=== PATIENT | female | born 1985 ===

== ENCOUNTER 2021-09-07 19:30 | Emergency (ER) | payer SELFPAY ==
[2021-09-07 20:50] LABS: Bilirubin,Urine NEG (Negative); Blood,Urine NEG (Negative); Color,Urine Straw (Yellow); Mucus,Urine FEW /HPF; Protein,Urine <15 mg/dL mg/dL (Negative); Urobilinogen,Urine < 2.0 mg/dL (<2.0)
[2021-09-07 21:33] LABS: Basophils % (Auto) 0.2 % (0.0-1.8); Eosinophils % (Auto) 0.2 % (0.0-4.3); Hematocrit 38.2 % (30.3-42.9); Hemoglobin 12.7 gm/dl (10.1-14.3); Lymphocytes # (Auto) 1.3 K/mm3 (1.2-5.4); Lymphocytes % (Auto) 14.2 % (13.4-35.0); Mean Corpuscular HGB Conc 33 % (30-34); Mean Corpuscular Volume 83 fl (79-97); Monocytes # (Auto) 0.6 K/mm3 (0.0-0.8); Platelet Count 231 K/mm3 (140-440); Red Cell Distribution Width 16.6 % (13.2-15.2)
[2021-09-07] MEDS ORDERED: SODIUM CHLORIDE 0.9% 1000 ML 1,000 ML IV ONE (22:53)
[2021-09-07] MEDS ORDERED: ONDANSETRON 4 MG/2 ML INJ IV ONE (22:54)
[2021-09-07 23:20] LABS: Alanine Aminotransferase 9 units/L (7-56); Albumin 4.1 g/dL (3.9-5); Blood Urea Nitrogen 6 mg/dL (7-17); Calcium 9.3 mg/dL (8.4-10.2); Hemolysis Index 2
[2021-09-07 23:23] LABS: BUN/Creatinine Ratio 15
[2021-09-08] MEDS ORDERED: MORPHINE 2 MG/1 ML INJ IV ONE ×2 (01:27→05:52)
--- NOTE | 2021-09-08 03:09 | Ultrasound Report ---
ULTRASOUND ABDOMEN, LIMITED (RIGHT UPPER QUADRANT) INDICATION: Right lower quadrant pain. COMPARISON: None available. FINDINGS: Pancreas: Visualized portion shows no significant abnormality. Liver: Normal. Gallbladder: Normal. Bile ducts: Normal. Common Bile Duct measures 5.6 mm. Free fluid: None. Additional Findings: None. IMPRESSION: 1. No sonographic abnormality of the right upper quadrant. 2. The appendix is not definitely identified. Signer Name: Dereje Latif MD Signed: 09/08/2021 3:05 AM Workstation Name: [id number]
--- NOTE | 2021-09-08 03:14 | Ultrasound Report ---
ULTRASOUND OBSTETRIC LIMITED INDICATION / CLINICAL INFORMATION: pain. Clinical Gestational Age (GA) in weeks, days: 15, 3 TECHNIQUE: Transabdominal. COMPARISON: None available. FINDINGS: HEART RATE (beats per minute): 143 AMNIOTIC FLUID INDEX (cm) = subjectively normal. PRESENTATION: Cephalic. AGE: 16 weeks 3 days. CERVICAL LENGTH: 2.9 cm ESTIMATED WEIGHT: 129 g ADDITIONAL FINDINGS: None. IMPRESSION: 1. Viable intrauterine dated 16 weeks 3 days by ultrasound. 2. Cervix is closed measuring 2.9 cm. Signer Name: Dereje Latif MD Signed: 09/08/2021 3:10 AM Workstation Name: [id number]
--- NOTE | 2021-09-08 04:34 | Emergency Department Report ---
ED Abdominal Pain HPI - General Chief Complaint: Abdominal Pain Stated Complaint: 15WKS RIGHT SIDE ABDOMINAL PAIN Time Seen by Provider: 09/07/21 22:47 Source: patient Mode of arrival: Ambulatory Limitations: No Limitations - History of Present Illness Initial Comments: pt is 36 years old with 2 misscarriages, from [facility] but lives in [place] , recent travel from [place] in may to [facility] for work, she is rural mail contractor . no bleeding MD Complaint: abdominal pain -: hour(s) Location: LLQ, RLQ Radiation: none Severity scale (0 -10): 6 Quality: cramping Consistency: constant Improves With: nothing Worsens With: nothing Associated Symptoms: nausea, vomiting. denies: diarrhea, constipation, dysuria, hematemesis, melena, hematuria, anorexia, syncope - Related Data LMP (females 10-50): Allergies Allergy/AdvReac Type Severity Reaction Status Date / Time No Known Allergies Allergy Unverified 09/07/21 20:36 ED Review of Systems ROS: Stated complaint: 15WKS RIGHT SIDE ABDOMINAL PAIN Other details as noted in HPI Comment: All other systems reviewed and negative ED Past Medical Hx - Past Medical History Previous Medical History?: No Hx Hypertension: No Hx CVA: No - Surgical History Past Surgical History?: No - Social History Smoking Status: Never Smoker Substance Use Type: None ED Physical Exam - General Limitations: No Limitations General appearance: alert, in no apparent distress - Head Head exam: Present: atraumatic, normocephalic - Eye Eye exam: Present: normal appearance - ENT ENT exam: Present: mucous membranes moist - Neck Neck exam: Present: normal inspection - Respiratory Respiratory exam: Present: normal lung sounds bilaterally. Absent: respiratory distress - Cardiovascular Cardiovascular Exam: Present: regular rate, normal rhythm. Absent: systolic murmur, diastolic murmur, rubs, gallop - GI/Abdominal GI/Abdominal exam: Present: tenderness, guarding, normal bowel sounds. Absent: rebound - External exam: Present: normal external exam Speculum exam: Present: normal speculum exam. Absent: erythema, vaginal bleeding, foreign body, tissue - Extremities Exam Extremities exam: Present: normal inspection - Back Exam Back exam: Present: normal inspection - Neurological Exam Neurological exam: Present: alert, oriented X3 - Psychiatric Psychiatric exam: Present: normal affect, normal mood - Skin Skin exam: Present: warm, dry, intact, normal color. Absent: rash ED Course Vital Signs 09/07/21 20:07 Temperature 98.5 F Pulse Rate 76 Respiratory 18 Rate Blood Pressure 111/66 O2 Sat by Pulse 99 Oximetry ED Medical Decision Making - Lab Data Result diagrams: 09/07/21 20:43 09/07/21 Unknown - Radiology Data Radiology results: report reviewed, image reviewed - Medical Decision Making work up negative , US showed normal IUP , pelvic exam normal, spoke with CERTIFIED LEGAL INVESTIGATOR for Ob [place] and came to see patient , will get CT abdomen ct abdomen , showed negative results , spoke with CERTIFIED LEGAL INVESTIGATOR, thinks it is round ligament , will d/c home with follow up Critical care attestation.: If time is entered above; I have spent that time in minutes in the direct care of this critically ill patient, excluding procedure time. ED Disposition Clinical Impression: Abdominal pain during , Round ligament pain Disposition: HOME / SELF CARE / HOMELESS Is pt being admited?: No Does the pt Need Aspirin: No Condition: Stable Instructions: Abdominal Pain (ED), Round Ligament Pain, Abdominal Pain During , [id number] Referrals: PRIMARY CARE, [Primary Care Provider] - 3-5 Days
--- NOTE | 2021-09-08 05:37 | Cat Scan Report ---
CT ABDOMEN AND PELVIS WITHOUT CONTRAST INDICATION / CLINICAL INFORMATION: pain. TECHNIQUE: Axial CT images were obtained through the abdomen and pelvis without IV contrast. All CT scans at this location are performed using CT dose reduction for ALARA by means of automated exposure control. COMPARISON: None available. FINDINGS: LOWER CHEST: No significant abnormality. LIVER: No significant abnormality. GALLBLADDER: No significant abnormality. BILE DUCTS: No significant abnormality. PANCREAS: No significant abnormality. SPLEEN: No significant abnormality. ADRENALS: No significant abnormality. RIGHT KIDNEY / URETER: No significant abnormality. LEFT KIDNEY / URETER: No significant abnormality. STOMACH / SMALL BOWEL: No significant abnormality. COLON: No significant abnormality. APPENDIX: Mildly prominent in thickness measuring 8.5 mm. No adjacent inflammation. Location is just below the right lobe of the liver. PERITONEUM: Free fluid. No free air. No fluid collection. LYMPH NODES: No significant adenopathy. VASCULAR STRUCTURES: No significant abnormality. URINARY BLADDER: No significant abnormality. REPRODUCTIVE ORGANS: Intrauterine . Physiologic appearing cysts left ovary. ADDITIONAL FINDINGS: None. SKELETAL SYSTEM: No significant abnormality. IMPRESSION: 1. Appendix mildly prominent in size but demonstrates no adjacent inflammation. It is favored to be n ormal. 2. Intrauterine . 3. Physiologic appearing cyst left ovary. Signer Name: Dereje Latif MD Signed: 09/08/2021 5:33 AM Workstation Name: [id number]
[2021-09-08 05:59] VITALS: BP 141/89
== END 2021-09-08 05:59 | disposition home or self-care (01) ==
LOC: ED 19:30
DX: O26.892 Other specified pregnancy related conditions, second trimester (principal); R10.9 Unspecified abdominal pain; M24.20 Disorder of ligament, unspecified site
CPT/HCPCS: 36415; 74176; 76705; 76805; 80053; 81001; 84702; 85025; 96361; 96374; 96375; 96376; 99284; J2270; J2405; J7030; Q0162